=== PATIENT | male | born 1980 | race African-American/Black ===

== ENCOUNTER 2022-09-03 02:45 | Emergency (ER) | payer MEDICAID ==
[~2022-09-03] VITALS: Ht 182.9 cm; Wt 95.3 kg
[~2022-09-03 02:45] MED LIST: GLIP5TAB13 PO; GLU500 PO
[2022-09-03 03:22] VITALS: BP 121/61
--- NOTE | 2022-09-03 03:28 | NUR ---
Patient taken to bed 2.
[2022-09-03 03:33] VITALS: BP 121/61
--- NOTE | 2022-09-03 04:03 | NUR ---
Dr. Edwards examining patient.
--- NOTE | 2022-09-03 04:13 | NUR ---
Patient discharged with v/s stable. Written and verbal after care instructions given and explained. Patient verbalized understanding. Ambulatory with steady gait. All questions addressed prior to discharge. Advised to follow up with PMD.
[2022-09-03] MEDS ORDERED: HYDROcodone/APAP 5/325 MG 1 TAB TAB PO ONE (04:15)
== END 2022-09-03 04:13 | disposition home or self-care (01) ==
LOC: MED 02:45
DX: S51.812D Laceration without foreign body of left forearm, subsequent encounter (principal); Z48.02 Encounter for removal of sutures; X58.XXXD Exposure to other specified factors, subsequent encounter
CPT/HCPCS: 99283